=== PATIENT | male | born 1960 | race Two or more races ===

== ENCOUNTER 2017-06-25 10:26 | Emergency (ER) | payer BC | END 2017-06-25 10:59 | disposition home or self-care (01) | LOC: ER 10:26 | DX: S93.402A Sprain of unspecified ligament of left ankle, initial encounter (principal); W01.0XXA Fall on same level from slipping, tripping and stumbling without subsequent striking against object, initial encounter; Y93.89 Activity, other specified; Y92.89 Other specified places as the place of occurrence of the external cause; Y99.8 Other external cause status | CPT/HCPCS: 73610; 99284 ==

== ENCOUNTER 2017-09-08 13:30 | Emergency (ER) | payer BC | END 2017-09-08 14:42 | disposition home or self-care (01) | LOC: ER 14:42 | DX: S49.91XA Unspecified injury of right shoulder and upper arm, initial encounter (principal); F17.210 Nicotine dependence, cigarettes, uncomplicated; X50.0XXA Overexertion from strenuous movement or load, initial encounter; Y93.89 Activity, other specified; Y92.89 Other specified places as the place of occurrence of the external cause; Y99.8 Other external cause status | CPT/HCPCS: 73030; 99284 ==